=== PATIENT | male | born 1955 | race Caucasian/White ===

== ENCOUNTER 2021-03-06 08:47 | Day surgery (SDC) | payer OTHER ==
[2021-03-03 12:19] LABS: COVID AG,FIA SOURCE NASOPHARYNGEAL
[~2021-03-06] VITALS: Ht 185.4 cm; Wt 165.9 kg
[2021-03-06] MEDS ORDERED: SODIUM CHLORIDE 0.9% 1,000 ML ONE (08:59)
[2021-03-06] MEDS ORDERED: CYAN1TAB44 PO (10:59)
[2021-03-06] MEDS ORDERED: METF-960 PO (10:59)
[2021-03-06] MEDS ORDERED: FLUT16H NASAL (10:59)
[2021-03-06] MEDS ORDERED: RISP2TAB45 PO (10:59)
[2021-03-06] MEDS ORDERED: AMLO2.5T96 PO (10:59)
[2021-03-06] MEDS ORDERED: LISI-894 PO (10:59)
[2021-03-06] MEDS ORDERED: BUPR-121 PO (10:59)
[2021-03-06] MEDS ORDERED: ALBU8HFA IH (10:59)
[2021-03-06] MEDS ORDERED: ATOR10TA84 PO (10:59)
[2021-03-06] MEDS ORDERED: OMEG-50 PO (10:59)
[2021-03-06] MEDS ORDERED: MULT-264 PO (10:59)
[2021-03-06] MEDS ORDERED: OMEP20 PO (10:59)
[2021-03-06] MEDS ORDERED: LOPE2 PO (10:59)
[2021-03-06] MEDS ORDERED: SODIUM CHLORIDE 0.9% 1,000 ML IV ONE (11:00)
== END 2021-03-06 13:30 | disposition home or self-care (01) ==
LOC: SURGERY 08:47
PROVIDERS: ATTEND Internal Medicine Gastroenterology
DX: R19.7 Diarrhea, unspecified (principal); Z53.8 Procedure and treatment not carried out for other reasons; R19.5 Other fecal abnormalities; I10 Essential (primary) hypertension; E11.9 Type 2 diabetes mellitus without complications; Z79.82 Long term (current) use of aspirin; Z79.899 Other long term (current) drug therapy; Z98.890 Other specified postprocedural states
CPT/HCPCS: 87426; C9803; J7030

== ENCOUNTER 2021-03-27 07:50 | Day surgery (SDC) | payer OTHER ==
[2021-03-24 11:22] LABS: COVID AG,FIA SOURCE NASOPHARYNGEAL
[~2021-03-27] VITALS: Ht 185.4 cm; Wt 165.9 kg
[~2021-03-27 07:50] MED LIST: ALBU8HFA IH; AMLO2.5T96 PO; ATOR10TA84 PO; BUPR-121 PO; CYAN1TAB44 PO; FLUT16H NASAL; LISI-894 PO; LOPE2 PO; METF-960 PO; MULT-264 PO; OMEG-50 PO; OMEP20 PO; RISP2TAB45 PO; SODIUM CHLORIDE 0.9% 1,000 ML ONE
[2021-03-27] MEDS ORDERED: PROPOFOL 1% 20 ML VIAL IVP ONE (07:51)
[2021-03-27] MEDS ORDERED: SODIUM CHLORIDE 0.9% 1,000 ML IV ONE (11:00)
[2021-03-27 12:21] LABS: GLUCOMETER DEV NAME(LOC) SDS.; GLUCOSE,POINT OF CARE 133 MG/DL (70-110)
== END 2021-03-27 14:25 | disposition home or self-care (01) ==
LOC: SURGERY 07:50
PROVIDERS: ATTEND Internal Medicine Gastroenterology
DX: R19.7 Diarrhea, unspecified (principal); R19.5 Other fecal abnormalities; K63.5 Polyp of colon; K64.8 Other hemorrhoids; I10 Essential (primary) hypertension; E11.9 Type 2 diabetes mellitus without complications; F32.9 Major depressive disorder, single episode, unspecified; Z98.890 Other specified postprocedural states; F17.210 Nicotine dependence, cigarettes, uncomplicated; Z72.89 Other problems related to lifestyle; Z79.899 Other long term (current) drug therapy; Z96.651 Presence of right artificial knee joint
CPT/HCPCS: 45380; 45385; 82962; 87426; C1769; C9803; J2704; J7030